=== PATIENT | female | born 2000 | race Caucasian/White ===

== ENCOUNTER 2023-08-12 12:58 | Emergency (ER) | payer MEDICAID, SELFPAY ==
[2023-08-12 13:24] VITALS: BP 116/62; PULSE 87; TEMP 36.7; O2SAT 98; BMI 21.6
== END 2023-08-12 14:17 | disposition left against medical advice (07) ==
LOC: ER 13:06
PROVIDERS: Emergency Provider Emergency Medicine Emergency Medical Services
DX: Z53.21 Procedure and treatment not carried out due to patient leaving prior to being seen by health care provider (principal)